=== PATIENT | female | born 1930 | race Caucasian/White ===

== ENCOUNTER 2016-10-18 14:59 | Emergency (ER) | payer MEDICARE, OTHER ==
--- NOTE | 2016-10-18 15:42 | ERNOTE ---
Lower Extremity HPI - Narrative Date of Service: 10/18/16 - General Lower Extremities Pain: leg: bilateral Time Seen by Provider: 10/18/16 15:22 Source: patient, family Exam Limitations: no limitations - Immun/Allergies/Home Medications Immunizations: IMMUNIZATION HX Immunizations Up to Date Yes History of Influenza Vaccine Yes Hx Pneumococcal Vaccination Yes Allergies/Adverse Reactions: Allergies Allergy/AdvReac Type Severity Reaction Status Date / Time No Known Allergies Allergy Verified 10/18/16 15:19 Home Medications: HOME MEDICATIONS Aspirin 81 mg PO DAILY 10/18/16 [Last Taken Unknown] metFORMIN HCL [Glucophage] 500 mg PO QID 10/18/16 [Last Taken Unknown] oxyCODONE HCL [Oxycodone] 5 mg PO Q6H PRN 10/18/16 [Last Taken Unknown] - History of Present Illness Narrative: Radha is an 85-year-old female brought to the emergency department 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 The caregiver went to her home to check on her because she does not have air conditioning and refuses to run a fan. The caregiver reports that it was nearly 120 in the house. The patient usually sees Dr. Trujillo, but he could not get her in this afternoon so she was brought here. The patient is somewhat of a poor historian. She denies having any prior problems with swelling in her legs. She also denies any history of heart failure. She denies any shortness of breath or chest pain. She reports that she has been keeping her legs elevated. Prior Treament: Denies: recently seen, similar symptoms before Review of Systems - Review of Systems Constitutional: Absent: recent illness, fever, chills, fatigue, malaise EYE: Present: no symptoms reported ENT: Present: no symptoms reported Respiratory: Absent: shortness of breath, cough, orthopnea Cardiology: Present: edema. Absent: chest pain, syncope, claudication Gastrointestinal/Abdominal: Absent: nausea, vomiting, diarrhea, constipation, abdominal pain Genitourinary: Absent: frequency, dysuria, decreased urinary output Musculoskeletal: Absent: joint pain, joint swelling Skin: Absent: rash, lesions, change in color Neurological: Present: no symptoms reported Endocrine: Present: no symptoms reported Hematologic/Lymphatic: Present: no symptoms reported Psych: Present: no symptoms reported - Patient's Past Medical History Patient History - Medical: Diabetes Type 2 Patient History - Cardiac/Respiratory: No pertinent hx Patient History - Cancer: No Hx of Cancer Patient History - Surgical Procedures: Cholecystectomy Patient History - Other: None LMP (females 10-50): Menopausal - Family History Mother Family History - Cancer: Other Father Family History - Cancer: Brain Brother Family History - Cancer: Other - Social History Living Situations: home Abuse History: No History of abuse Psych History: No pertinent hx Smoking Status: Former smoker Have you smoked in the past 12 months: No Alcohol Use: none Drug Use: none - Immunizations Immunizations Up to Date: Yes Hx Pneumococcal Vaccination: Yes History of Influenza Vaccine: Yes Physical Exam - Physical Exam General Appearance: Present: wd/wn, alert, no apparent distress Neck: Present: normal inspection, nontender, supple, full range of motion Respiratory: Present: no respiratory distress, normal breath sounds, no accessory muscle use, lungs clear Cardiovascular/Chest: Present: regular rate, rhythm, no murmur, normal peripheral pulses Peripheral Pulses: N=norm/S=strong/W=weak/B=bound/A=absent: Dorsalis-pedis (R): Normal, Dorsalis-pedis (L): Normal Gastrointestinal/Abdominal: Present: nontender, nondistended, soft Extremity Exam: Present: non-tender, normal range of motion, pedal edema, extremity edema - bilateral ankles and feet 3+ Neurological Exam: Present: alert, normal mood/affect, no motor/sensory deficits , disoriented to time Skin Exam: Present: normal color, warm/dry, other - large abrasion on left lateral thigh, appears to be healing well ED Progress - Results and Orders Patient's Lab Results:: I have reviewed the patient's lab results. - Vital Signs Patient's Vital Signs:: I have reviewed the patient's vital signs. Vital Signs: Vital Signs 10/18/16 15:09 Temperature 36.9 C Pulse Rate 79 Respiratory 16 Rate Blood Pressure 155/59 O2 Sat by Pulse 99 Oximetry - Progress/Reassessment Chief Complaint: Lower Extremity Pain/ Injury Progress:: Improved Progress Note-Subjective: Lab work is unremarkable aside from a glucose of 400. She admits to not taking her metformin as directed regularly. Edema improved significantly while in department with legs elevated. 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
[2016-10-18 15:58] LABS: Hematocrit 35.5 % (37.0-47.0); Hemoglobin 12.7 gm/dL (12.5-16.0); Mean Cell Volume 84.1 fl (78-100); Mean Corpuscular Hemoglobin 30.1 pg (27-31); Mean Corpuscular Hgb Conc 35.8 g/dl (32-36); Mean Platelet Volume 9.4 fl (6.0-9.5); Neutrophil # 4.5 K/mm3 (1.3-6.0); Neutrophil % 60.8 % (42-75.0); Platelet Count 301 K/mm3 (150-450); Red Blood Count 4.22 M/mm3 (4.2-5.4); Red Cell Distribution Width 11.9 % (11.5-14.0); White Blood Count 7.4 K/mm3 (4.0-10.5)
[2016-10-18 16:21] LABS: Albumin * 3.3 gm/dl (3.4-5.0); Anion Gap 14.6 mmol/L (6.8-13.8); BUN/Creatinine Ratio 19.8 (9.0-21.6); Bilirubin, Total 0.6 mg/dL (0.0-1.1); Ca. Corrected For Albumin 9.1 mg/dL (8.4-10.2); Calcium * 8.9 mg/dL (7.9-10.9); Carbon Dioxide 26.4 mmol/L (24-32.6); Total Protein 6.7 gm/dL (6.2-8.2)
[2016-10-18 16:26] VITALS: BP 160/75
== END 2016-10-18 16:51 | disposition home or self-care (01) ==
LOC: ER 14:59
DX: R60.0 Localized edema (principal); E11.65 Type 2 diabetes mellitus with hyperglycemia; Z87.891 Personal history of nicotine dependence